=== PATIENT | male | born 1925 | race Caucasian/White ===

== ENCOUNTER 2017-09-29 09:29 | Outpatient (CLI) | payer MEDICARE, OTHER ==
--- NOTE | 2017-09-29 10:17 | RAD ---
CHEST TWO VIEWS: History: Dyspnea. Comparison: 09-14-17 FINDINGS: Heart size is enlarged. Small effusions. Interstitial opacities are similar. No pneumothorax. No acut e osseous abnormality. IMPRESSION: 1. Cardiomegaly with moderate edema. Underlying developing pulmonary fibrosis is also of concern. 2. Old left sided rib fractures. POS: OFF
== END 2017-09-29 09:30 | disposition home or self-care (01) ==
LOC: RAD 09:29
PROVIDERS: ATTEND Internal Medicine Critical Care Medicine
DX: R06.00 Dyspnea, unspecified (principal); Z51.81 Encounter for therapeutic drug level monitoring; J81.1 Chronic pulmonary edema; I51.7 Cardiomegaly; J84.10 Pulmonary fibrosis, unspecified; Z79.01 Long term (current) use of anticoagulants; Z87.81 Personal history of (healed) traumatic fracture
CPT/HCPCS: 71020

== ENCOUNTER 2017-10-02 23:52 | Inpatient (IN) | payer MEDICARE, OTHER ==
[2017-10-03] MEDS ORDERED: methylPREDNISolone Sod Succ/PF 125 MG/2 ML VIAL ONE (00:24)
[2017-10-03] MEDS ORDERED: Magnesium Sulfate 2 GM/100 ML BAG ONE (00:24)
[2017-10-03 00:33] LABS: #Basophils 0.1 thou/uL (0.0-0.2); #Eosinphils 0.2 thou/uL (0.0-0.7); #Lymphocytes 0.7 thou/uL (1.20-3.40); #Monocytes 0.7 thou/uL (0.11-0.59); #Neutrophils 4.5 thou/uL (1.40-6.50); %Basophils 0.8 % (0.0-1.0); %Eosinophils 3.8 % (0.0-10.0); %Lymphocytes 11.5 % (21.0-51.0); %Monocytes 11.9 % (0.0-10.0); Hematocrit 31.5 % (42.0-52.0); Mean Platelet Volume 8.8 fL (7.4-10.4); Red Blood Cell (RBC) Count 3.42 mill/uL (4.70-6.10); White Blood Cell (WBC) Count 6.2 thou/uL (4.8-10.8)
[2017-10-03 00:43] LABS: PTT 38.2 SEC (22.9-36.1); Prothrombin Time 20.1 SEC (12.0-14.7)
[2017-10-03 00:54] LABS: Digoxin 0.85 ng/mL (0.8-2.0)
[2017-10-03 00:54] LABS: ALT (SGPT) 16 U/L (8-55); AST (SGOT) 31 U/L (5-34); Alkaline Phosphatase 128 U/L (40-150); Anion Gap 12 mmol/L (10-20); BUN (Urea Nitrogen) 20 mg/dL (8.4-25.7); Bilirubin, Total 2.1 mg/dL (0.2-1.2); CK (CPK) 118 U/L (30-200); Calc. Creatinine Clearance 0 mL/min (70-130); Calcium 9.7 mg/dL (7.8-10.44); Carbon Dioxide 24 mmol/L (23-31); Chloride 106 mmol/L (98-107); Estimated GFR-MDRD 77; Globulin 2.6 g/dL (2.4-3.5); Protein, Total 6.4 g/dL (5.8-8.1)
[2017-10-03 01:24] LABS: Troponin I 0.022 ng/mL (< 0.028)
[2017-10-03] MEDS ORDERED: Albuterol Sulfate 2.5 mg/3 ml Neb ONE (02:31)
[2017-10-03] MEDS ORDERED: Albuterol Sulfate 2.5 mg/0.5 ml Neb ONE (02:31)
[2017-10-03 02:37] LABS: Sodium 137 mmol/L (135-148)
[2017-10-03 02:39] LABS: Modified Allen's Test POSITIVE
[2017-10-03 02:40] LABS: Mode NC
[2017-10-03 04:44] VITALS: BMI 25.0
[2017-10-03] MEDS ORDERED: methylPREDNISolone Sod Succ/PF 125 MG/2 ML VIAL IVP SCH ×3 (06:00→12:00)
[2017-10-03] MEDS ORDERED: Benzonatate 100 MG CAP PO PRN (06:12)
[2017-10-03] MEDS ORDERED: Albuterol Sulfate 1.25 MG/3 ML NEB NEB PRN (06:15)
[2017-10-03] MEDS ORDERED: Loperamide HCl 2 MG CAP PO PRN (06:59)
[2017-10-03] MEDS ORDERED: Artificial Tears 18 DROP/0.9 ML EA EYE PRN (06:59)
[2017-10-03] MEDS ORDERED: Sodium Chloride 0.65% Nasal 44 ML BOT EA NARE PRN (06:59)
[2017-10-03] MEDS ORDERED: Ondansetron HCl/PF 4 MG/2 ML Vial IVP PRN (06:59)
[2017-10-03] MEDS ORDERED: Mag-Al 1200 mg/1200 mg/30 ML UDCUP PO PRN (06:59)
[2017-10-03] MEDS ORDERED: Eucerin (Mineral Oil/Petrolatum,White) 30 gm Jar TOP PRN (06:59)
[2017-10-03] MEDS ORDERED: Milk Of Magnesia 30 ML UDCUP PO PRN (06:59)
[2017-10-03] MEDS ORDERED: Loratadine 10 MG TAB PO PRN (06:59)
[2017-10-03] MEDS ORDERED: Acetaminophen 325 MG TAB PO PRN (06:59)
[2017-10-03] MEDS ORDERED: Diabetic Tussin 200 MG/10 ML UDCUP PO PRN (06:59)
[2017-10-03] MEDS ORDERED: HYDROcodone/Acetaminophen 5/325 mg Tablet PO PRN (06:59)
[2017-10-03] MEDS ORDERED: Ondansetron ODT 4 MG TAB PO PRN (06:59)
[2017-10-03] MEDS ORDERED: Chloraseptic Spray 180 ml Bottle PO PRN (06:59)
[2017-10-03] MEDS ORDERED: Senokot 8.6 MG TAB PO PRN (06:59)
[2017-10-03] MEDS ORDERED: hydrALAZINE 20 MG/ML VIAL SLOW IVP PRN (06:59)
[2017-10-03 07:16] LABS: #Lymphocytes 0.3 thou/uL (1.20-3.40); #Neutrophils 4.1 thou/uL (1.40-6.50); %Eosinophils 0.3 % (0.0-10.0); %Lymphocytes 6.5 % (21.0-51.0); %Monocytes 0.6 % (0.0-10.0); Mean Platelet Volume 8.6 fL (7.4-10.4); Red Blood Cell (RBC) Count 3.37 mill/uL (4.70-6.10); White Blood Cell (WBC) Count 4.4 thou/uL (4.8-10.8)
[2017-10-03 07:23] LABS: Prothrombin Time 19.4 SEC (12.0-14.7)
[2017-10-03 07:34] LABS: Anion Gap 13 mmol/L (10-20); BUN (Urea Nitrogen) 19 mg/dL (8.4-25.7); Calc. Creatinine Clearance 60 mL/min (70-130); Calcium 9.4 mg/dL (7.8-10.44); Carbon Dioxide 22 mmol/L (23-31); Chloride 105 mmol/L (98-107); Estimated GFR-MDRD 77
[2017-10-03] MEDS: guaiFENesin ER 600 MG TAB PO SCH ×2 (08:12→21:49)
[2017-10-03] MEDS: Digoxin 0.125 MG TAB PO SCH (08:12)
[2017-10-03] MEDS: Famotidine 20 MG TAB PO SCH ×2 (08:13→21:50)
[2017-10-03] MEDS: Tamsulosin HCl 0.4 MG CAP PO SCH (08:13)
[2017-10-03] MEDS: Ferrous Sulfate 325 MG TAB PO SCH (08:13)
--- NOTE | 2017-10-03 08:32 | RAD ---
CHEST 1 VIEW: Date: 10/03/17 HISTORY: 89-year-old male with dyspnea. COMPARISON: 09/29/17. FINDINGS: Extensive bilateral interstitial, linear, and reticulonodular parenchymal changes throughout both jayden gs. There is evidence for some right pleural effusion. Appearance is stable from 09/29/17. Postop mid line sternotomy. Minimal cardiomegaly. IMPRESSION: Minimal cardiomegaly with bilateral interstitial, linear, reticulonodular parenchymal changes, and sm all right pleural effusion. Stable from 09/29/17. POS: ADEEL
--- NOTE | 2017-10-03 11:10 | CON ---
DATE OF CONSULTATION: 10/03/2017 CONSULTING PHYSICIAN: Chencho Marquez M.D. REASON FOR CONSULTATION: Shortness of breath. HISTORY OF PRESENT ILLNESS: Mr. Mehta is an 89-year-old male who sees Dr. Cuevas for chronic inters titial lung disease. He was hospitalized last night with increasing shortness of breath. He says he is still breathing poorly this morning. He has had no cough and no congestion. PAST MEDICAL HISTORY: 1. Chronic obstructive lung disease, which apparently is not idiopathic pulmonary fibrosis. 2. Chronic atrial fibrillation. 3. Thyroid cancer. 4. Hypertension. 5. Gastroesophageal reflux. 6. Osteoarthritis. 7. Hyperlipidemia. PAST SURGICAL HISTORY: 1. Cholecystectomy. 2. Knee surgery. 3. Bowel resection. ALLERGIES: None. FAMILY MEDICAL HISTORY: Unremarkable. SOCIAL HISTORY: Nonsmoker, does not consume alcohol. MEDICATIONS PRIOR TO ADMISSION: Flomax 0.4 mg daily, Proscar 5 mg nightly, iron sulfate 325 mg every other day, Lanoxin 0.125 mg every morning, Tessalon 200 mg t.i.d. p.r.n. cough, Lipitor 20 mg daily, aspirin 81 mg daily, warfarin 3 mg Tuesday, Tuesday, and Tuesday and 1.5 mg Tuesday, , Tuesday; potassium chloride 20 mEq daily, DuoNeb three-four times daily. IMMUNIZATION STATUS: Had a flu shot this year, had pneumococcal vaccine in 07/2015. REVIEW OF SYSTEMS: Denies fever, chills, nausea, vomiting, chest pain, hematemesis, melena, hematoch ezia, hematuria, or dysuria. PHYSICAL EXAMINATION: VITAL SIGNS: Temperature 97.6, pulse 92, respirations 20, O2 sat 96% on 1 liter, blood pressure 136/ 66. GENERAL: He is sitting up. He is in no distress. HEENT: Remarkable for profound deafness. He has pupils that react equally. Oropharynx has poor den tition. NECK: Without adenopathy or JVD. LUNGS: Clear to auscultation except for crackles in the bases best heard posteriorly. CARDIAC: S1, S2 regular, without murmur. ABDOMEN: Soft and nontender. EXTREMITIES: No clubbing, cyanosis, or edema. NEUROLOGIC: Nonfocal. LABORATORY DATA: Sodium 136, potassium 4.3, chloride 105, CO2 22, BUN 19, creatinine 0.9, glucose 12 4, pH was 7.43, pCO2 31, pO2 259 on 2 liters nasal cannula. White blood cell count 4.4, hematocrit 3 1, platelet count 176. Chest x-ray shows chronic interstitial changes bilaterally. ASSESSMENT: 1. Increasing shortness of breath which I think is most likely related to mild fluid overload. 2. Chronic interstitial lung disease, which appears to be stable. RECOMMENDATIONS: 1. I would recommend diuresing him as you are doing. 2. Short course of steroids and antibiotics as it would be difficult to tell if he has superimposed pneumonia. If he improves rapidly with diuresis, then I would entertain stopping the antibiotics eddi walton quickly. Thank you for the referral. I will be happy to follow with you.
--- NOTE | 2017-10-03 12:16 | HP ---
PRIMARY CARE PHYSICIAN: Sheila Palacios M.D. REASON FOR ADMISSION: Increasing shortness of breath. HISTORY OF PRESENT ILLNESS: An 89-year-old male who has a history of pulmonary fibrosis who was brou ght to emergency room last night with complaint of increasing shortness of breath. At this point, geni smalls's family member is not present with him and patient is not able to provide good history, so his tory is limited. Most of the history is obtained from ER chart. Family member reported to the ER ph ysician that patient was getting shortness of breath after walking short distance and patient is feel ing more shortness of breath for the last 2 days. He was having wheezing. Patient was also given br eathing treatment at home without any significant help. Patient was recently hospitalized on 09/24/2017 at [facility], but after discharge f rom that hospitalization, patient's condition gotten worse. Patient has underlying history of pulmon betty fibrosis and is following Dr. Cuevas. He had echocardiography last year in 2016, which showed atr ial fibrillation, moderate to severe MR, moderate AR and tricuspid regurgitation. Today, patient has elevated BNP. He does not have any lower extremity edema. When I saw this patient this morning, at that time, patient was wheezing. He is hard of hearing and not able to provide a good history, but he was comfortable with oxygen. REVIEW OF SYSTEMS: The following complete review of systems was negative, unless otherwise mentioned in the HPI or below: Constitutional: Weight loss or gain, ability to conduct usual activities. Skin: Rash, itching. Eyes: Double vision, pain. ENT/Mouth: Nose bleeding, neck stiffness, pain, tenderness. Cardiovascular: Palpitations, dyspnea on exertion, orthopnea. Respiratory: Shortness of breath, wheezing, cough, hemoptysis, fever or night sweats. Gastrointestinal: Poor appetite, abdominal pain, heartburn, nausea, vomiting, constipation, or diarr hea. Genitourinary: Urgency, frequency, dysuria, nocturia. Musculoskeletal: Pain, swelling. Neurologic/Psychiatric: Anxiety, depression. Allergy/Immunologic: Skin rash, bleeding tendency. Review of systems is limited and is not reliable because of patient's hard of hearing and cognitive s tatus. ALLERGIES: No known drug allergies. CURRENT HOME MEDICATIONS: Proscar 5 mg p.o. daily, Zocor 40 mg p.o. at bedtime, aspirin 81 mg p.o. d aily, potassium chloride 20 mEq p.o. daily, Coumadin 3 mg p.o. daily, Lasix 40 mg p.o. daily, ferrous sulfate 325 mg p.o. daily. PAST MEDICAL HISTORY: Hypertension, dyslipidemia, coronary artery disease, atrial fibrillation, pulm onary fibrosis, gastroesophageal reflux disease, history of thyroid cancer, osteoarthritis, history o f pneumothorax with history of multiple rib fractures, chronic normocytic anemia, benign enlargement of prostate, history of ischemic bowel disease, history of thyroid nodule . PAST SURGICAL HISTORY: CABG x3, cholecystectomy, knee surgery, bowel resection, chest tube placement , cataract surgery, EGD, laryngoscopy, right total knee replacement, exploratory laparotomy. PAST PSYCHIATRIC HISTORY: Reviewed and negative. SOCIAL HISTORY: The patient lives at home with family. No history of tobacco, alcohol or illicit dr ug abuse. He is a former smoker. He quit smoking 2 years ago. FAMILY HISTORY: No strong family history of premature coronary artery disease, stroke or cancer. EMERGENCY ROOM COURSE: Patient is given albuterol sulfate nebulization, magnesium sulfate 2 g, Solu- Medrol 125 mg, and DuoNeb therapy. PHYSICAL EXAMINATION: VITAL SIGNS: Today blood pressure 126/76, pulse 82, respiratory rate 20, temperature 98.1, saturatio n 95% on 2 liter oxygen, weight 78.02 kilograms. GENERAL: Patient is currently alert, awake, arousable, hard of hearing, no obvious acute distress. HEAD: Normocephalic, atraumatic. EYES: Pupils are round and reactive to light. Extraocular muscles intact. ENT: Oropharynx within normal limits. Moist mucous membranes. No oral lesions. No pharyngeal eryt fabian, no exudate. NECK: Supple, no JVD, no thyromegaly, no carotid bruits. LUNGS: Bilateral end expiratory wheezing heard. Air entry reduced. No rales. Wheezing present melita aterally and no accessory muscles of respiration use. CARDIAC: S1 and S2 irregularly irregular. Systolic murmur present parasternally. ABDOMEN: Soft, bowel sounds present, nontender, nondistended. No organomegaly, no mass, no suprapub ic tenderness. BACK: Examination unremarkable. No CVA tenderness. EXTREMITIES: Upper extremity passive movements of all joints are normal. Lower extremity, no edema. Good peripheral pulsation. SKIN: No skin rash. HEMATOLOGICAL SYSTEM: No lymphadenopathy. PSYCHIATRIC: Normal affect. IMAGING AND SIGNIFICANT LABORATORY DATA: 1. EKG based on my review, atrial fibrillation with controlled ventricular response, incomplete righ t bundle branch block pattern. 2. Chest x-ray based on my review, chronic changes, bilateral interstitial and reticulonodular rodriguez es, small right pleural effusion. 3. CBC: WBC 6.2, hemoglobin 10.1, platelets 193. INR 1.7. 4. ABG: pH 7.43, CO2 31.3, bicarbonate 20.2, saturation 99.6. 5. BMP: Sodium 137, potassium 4.5, chloride 106, carbon dioxide 24, BUN 20, creatinine 0.92, glucos e 92, calcium 9.7. 6. LFT: AST 31, ALT 16, alkaline phosphatase 128, albumin 3.8, CK 118, CK-MB 5.8, troponin I 0.022, BNP 530.2, digoxin level 0.85. ASSESSMENT AND PLAN/IMPRESSION: 1. Increasing dyspnea, most likely related with combined etiology of mild fluid overload versus flar e up of interstitial lung disease. We will consult Pulmonary for their opinion. We will continue wi th Lasix 20 mg IV b.i.d. We will also consider adding Solu-Medrol 40 mg IV q.6 hourly along with empi traci antibiotic therapy for presumed superinfection. We will also continue with DuoNeb therapy every 4 hourly and Dulera 2 puffs inhalation b.i.d. We will closely monitor clinical response. 2. Acute on chronic diastolic congestive heart failure. This patient had echocardiography in 2016, which showed moderate to severe aortic regurgitation, tricuspid regurgitation, and severe mitral regu rgitation. Patient also has elevated BNP and patient also has mild fluid overload status and that is why we are treating with Lasix. 3. Chronic atrial fibrillation, currently rate controlled. We will continue aspirin 81 mg p.o. gabby y along with digoxin 0.125 mg p.o. b.i.d. 4. Dyslipidemia. We will continue Lipitor 20 mg p.o. at bedtime. 5. Benign enlargement of prostate. We will continue Proscar 5 mg p.o. daily and Flomax 0.4 mg p.o. daily. 6. Chronic anticoagulation. We will continue with warfarin 3 mg p.o. daily and we will monitor PT/I NR on daily basis. 7. Deep venous thrombosis prophylaxis, sequential compression device boots only. 8. Gastrointestinal prophylaxis, Pepcid 20 mg p.o. b.i.d. 9. Code status: The patient is FULL CODE at this point. No family member present at bedside. 10. Chronic normocytic anemia. Continue iron sulfate as per home dosage. Disposition plan based on clinical course. Based on the level of severity, I am expecting patient wi ll stay in hospital more than 2 midnights. Plan of care discussed with the patient.
[2017-10-03] MEDS: Furosemide 20 MG/2 ML VIAL SLOW IVP SCH (14:32)
[2017-10-03] MEDS ORDERED: Warfarin Sodium 3 MG TAB PO SCH (17:00)
[2017-10-03] MEDS: Mometasone/Formoterol 120 PUFF INHALER INH SCH (18:30)
[2017-10-03] MEDS: Finasteride 5 MG TAB PO SCH (21:49)
[2017-10-03] MEDS: Atorvastatin Calcium 10 MG TAB PO SCH (21:50)
[2017-10-04 04:34] LABS: #Lymphocytes 0.4 thou/uL (1.20-3.40); #Monocytes 0.5 thou/uL (0.11-0.59); #Neutrophils 9.2 thou/uL (1.40-6.50); %Basophils 0.2 % (0.0-1.0); %Lymphocytes 4.1 % (21.0-51.0); %Monocytes 4.6 % (0.0-10.0); Hematocrit 28.8 % (42.0-52.0); Mean Platelet Volume 9.1 fL (7.4-10.4); Red Blood Cell (RBC) Count 3.13 mill/uL (4.70-6.10); White Blood Cell (WBC) Count 10.1 thou/uL (4.8-10.8)
[2017-10-04 04:36] LABS: Prothrombin Time 21.8 SEC (12.0-14.7)
[2017-10-04 04:46] LABS: Anion Gap 11 mmol/L (10-20); BUN (Urea Nitrogen) 33 mg/dL (8.4-25.7); Calc. Creatinine Clearance 49 mL/min (70-130); Calcium 9.5 mg/dL (7.8-10.44); Carbon Dioxide 24 mmol/L (23-31); Chloride 104 mmol/L (98-107); Estimated GFR-MDRD 60
[2017-10-04] MEDS: Furosemide 20 MG/2 ML VIAL SLOW IVP SCH (05:24)
[2017-10-04] MEDS: Mometasone/Formoterol 120 PUFF INHALER INH SCH ×2 (06:42→19:57)
[2017-10-04] MEDS: Tamsulosin HCl 0.4 MG CAP PO SCH (08:46)
[2017-10-04] MEDS: guaiFENesin ER 600 MG TAB PO SCH ×2 (08:46→20:03)
[2017-10-04] MEDS: Famotidine 20 MG TAB PO SCH ×2 (08:46→20:03)
[2017-10-04] MEDS: Digoxin 0.125 MG TAB PO SCH (08:54)
--- NOTE | 2017-10-04 09:55 | PRG ---
DATE OF SERVICE: 10/04/2017 The patient feels better today. He said he slept well last night. PHYSICAL EXAMINATION: VITAL SIGNS: Temperature 97.8, pulse 77, respirations 20, O2 sat 96%, blood pressure 94/57. HEENT: Unremarkable. NECK: No JVD. LUNGS: Fairly clear without wheeze, rhonchi. CARDIAC: S1 and S2 regular. ABDOMEN: Soft, nontender. EXTREMITIES: No edema. LABORATORY DATA: White blood cell count 10, hematocrit 28.8, platelet count 190. INR 1.8, sodium 13 4, potassium 4.8, chloride 104, CO2 24, BUN 33, creatinine 1.1, glucose 160. ASSESSMENT: 1. Diastolic cardiac dysfunction with congestive heart failure. 2. Chronic interstitial lung disease which appears to be stable. RECOMMENDATION: 1. He is getting somewhat dry, so I will have his diuretics cut back. 2. I would change his steroids over to oral therapy with a rapid taper. 3. Change antibiotics over to oral therapy tomorrow and do not extend beyond 5 days. 4. I think he could probably go home tomorrow.
--- NOTE | 2017-10-04 12:53 | PDOC.PN ---
- Subjective Encounter Start Date: 10/04/17 Encounter Start Time: 08:45 Patient seen and examined. No new complaints. No overnight events - Objective Resuscitation Status: Resuscitation Status FULL:Full Resuscitation MAR Reviewed: Yes Vital Signs & Weight: Vital Signs (12 hours) Temp Pulse Resp BP Pulse Ox 10/04/17 11:44 97.3 F L 93 22 H 91/52 L 97 10/04/17 11:10 80 18 10/04/17 08:54 77 10/04/17 08:00 97.8 F 77 20 94/57 L 96 10/04/17 06:44 94 L 10/04/17 06:42 77 16 94 L 10/04/17 05:46 97.4 F L 78 16 108/71 97 Weight Weight 174 lb I&O: 10/03/17 10/04/17 10/05/17 06:59 06:59 06:59 Intake Total 1160 440 Output Total 200 600 Balance 960 -160 Result Diagrams: 10/04/17 04:02 10/04/17 04:02 Phys Exam - Physical Examination Constitutional: NAD HEENT: PERRLA, moist MMs, sclera anicteric Neck: no JVD, supple Respiratory: no wheezing, no rales, no rhonchi Cardiovascular: RRR, no significant murmur, no rub Gastrointestinal: soft, non-tender, no distention, positive bowel sounds Musculoskeletal: no edema, pulses present Neurological: non-focal Lymphatic: no nodes Psychiatric: normal affect Skin: no rash, normal turgor Dx/Plan (1) Acute on chronic diastolic (congestive) heart failure Code(s): I50.33 - ACUTE ON CHRONIC DIASTOLIC (CONGESTIVE) HEART FAILURE Status : Acute (2) Acute respiratory failure with hypoxia Code(s): J96.01 - ACUTE RESPIRATORY FAILURE WITH HYPOXIA Status: Acute (3) COPD exacerbation Code(s): J44.1 - CHRONIC OBSTRUCTIVE PULMONARY DISEASE W (ACUTE) EXACERBATION Status: Acute (4) BPH (benign prostatic hyperplasia) Code(s): N40.0 - BENIGN PROSTATIC HYPERPLASIA WITHOUT LOWER URINRY TRACT SYMP Status: Chronic (5) Chronic anticoagulation Code(s): Z79.01 - CORRECTION (CURRENT) USE OF ANTICOAGULANTS Status: Chronic (6) ILD (interstitial lung disease) Code(s): J84.9 - INTERSTITIAL PULMONARY DISEASE, UNSPECIFIED Status: Chronic (7) Paroxysmal atrial fibrillation Code(s): I48.0 - PAROXYSMAL ATRIAL FIBRILLATION Status: Chronic (8) Severe mitral regurgitation by prior echocardiogram Code(s): I34.0 - NONRHEUMATIC MITRAL (VALVE) INSUFFICIENCY Status: Chronic - Plan cont current plan of care, plan discussed w/ family, continue antibiotics, respiratory therapy * reduce lasix * change to po steroid * change to po antibiotics * get echo today * medication reviewed as below * symptomatic treatment * discussed with son. Review of Systems - Review of Systems Other: not reliable due to dementia - Medications/Allergies Allergies/Adverse Reactions: Allergies Allergy/AdvReac Type Severity Reaction Status Date / Time No Known Drug Allergies Allergy Verified 10/03/17 05:14 Medications: Current Medications Acetaminophen (Tylenol) 650 mg PO Q4H PRN PRN Reason: Headache/Fever or Pain Hydrocodone Bitart/Acetaminophen ([place] 5/325) 1 tab PO Q4H PRN PRN Reason: Moderate Pain (4-6) Last Admin: 10/04/17 00:22 Dose: 1 tab Al Hydroxide/Mg Hydroxide (Maalox) 30 ml PO Q6H PRN PRN Reason: Heartburn or Indigestion Albuterol Sulfate (Albuterol Sulfate) 1.25 mg NEB Q2H PRN PRN Reason: Wheezing or Cough Albuterol/Ipratropium (Duoneb) 3 ml NEB [id number] [facility] Stop: 10/09/17 14:22 Last Admin: 10/04/17 11:10 Dose: 3 ml Artificial Tears (Tears Naturale) 0 drop EA EYE PRN PRN PRN Reason: Dry Eyes Aspirin (Aspirin Chewable) 81 mg PO DAILY [facility] Last Admin: 10/04/17 08:46 Dose: 81 mg Atorvastatin Calcium (Lipitor) 20 mg PO HS [facility] Last Admin: 10/03/17 21:50 Dose: 20 mg Benzonatate (Tessalon) 200 mg PO TIDPRN PRN PRN Reason: Cough Digoxin (Lanoxin) 0.125 mg PO QAM [facility] Last Admin: 10/04/17 08:54 Dose: 0.125 mg Famotidine (Pepcid) 20 mg PO BID [facility] Last Admin: 10/04/17 08:46 Dose: 20 mg Ferrous Sulfate (Feosol) 325 mg PO Q2DAYS [facility] Last Admin: 10/03/17 08:13 Dose: 325 mg Finasteride (Proscar) 5 mg PO HS [facility] Last Admin: 10/03/17 21:49 Dose: 5 mg Furosemide (Lasix) 20 mg PO DAILY [facility] Guaifenesin (Robitussin Sf) 200 mg PO Q4H PRN PRN Reason: Cough Guaifenesin (Mucinex) 600 mg PO Q12HR [facility] Last Admin: 10/04/17 08:46 Dose: 600 mg Hydralazine HCl (Apresoline) 10 mg SLOW IVP Q4H PRN PRN Reason: Systolic BP > 180 Levofloxacin (Levaquin) 500 mg PO 0600 [facility] Loperamide HCl (Imodium) 2 mg PO PRN PRN PRN Reason: Diarrhea/Loose Stools Loratadine (Claritin) 10 mg PO DAILYPRN PRN PRN Reason: Sinus Symptoms Magnesium Hydroxide (Milk Of Magnesium) 30 ml PO DAILYPRN PRN PRN Reason: Constipation Mineral Oil/White Petrolatum (Eucerin Cream) 0 gm TOP BIDPRN PRN PRN Reason: Dry Skin Mometasone Furoate/Formoterol Fumar (Dulera 200 Mcg/5 Mcg Inhaler) 2 puff INH BID-RT [facility] Last Admin: 10/04/17 06:42 Dose: 2 puff Ondansetron HCl (Zofran Odt) 4 mg PO Q6H PRN PRN Reason: Nausea/Vomiting Ondansetron HCl (Zofran) 4 mg IVP Q6H PRN PRN Reason: Nausea/Vomiting Phenol (Chloraseptic [place] 180 Ml Bot) 0 ml PO PRN PRN PRN Reason: Sore Throat Prednisone (Prednisone) 20 mg PO BID [facility] Senna (Senokot) 2 tab PO HSPRN PRN PRN Reason: Constipation Sodium Chloride (Flush - Normal Saline) 10 ml IVF Q12HR [facility] Last Admin: 10/04/17 08:46 Dose: 10 ml Sodium Chloride (Flush - Normal Saline) 10 ml IVF PRN PRN PRN Reason: Saline Flush Last Admin: 10/03/17 05:05 Dose: 10 ml Sodium Chloride (Lloyd Nasal [place] 0.65%) 0 ml EA NARE QIDPRN PRN PRN Reason: Nasal Congestion Tamsulosin HCl (Flomax) 0.4 mg PO DAILY [facility] Last Admin: 10/04/17 08:46 Dose: 0.4 mg Warfarin Sodium (Coumadin) 3 mg PO SuTuThSa@1700 FAMILIA Warfarin Sodium (Coumadin) 1.5 mg PO MoWeFr@1700 FAMILIA
[2017-10-04] MEDS ORDERED: Warfarin Sodium 3 MG TAB PO SCH (17:00)
[2017-10-04] MEDS: Atorvastatin Calcium 10 MG TAB PO SCH (20:03)
[2017-10-04] MEDS: predniSONE 20 MG TAB PO SCH (20:03)
[2017-10-04] MEDS: Finasteride 5 MG TAB PO SCH (21:00)
[2017-10-05 05:05] LABS: Prothrombin Time 22.1 SEC (12.0-14.7)
[2017-10-05] MEDS: Mometasone/Formoterol 120 PUFF INHALER INH SCH ×2 (07:01→18:58)
[2017-10-05] MEDS: Famotidine 20 MG TAB PO SCH ×2 (08:21→20:10)
[2017-10-05] MEDS: Digoxin 0.125 MG TAB PO SCH (08:21)
[2017-10-05] MEDS: Ferrous Sulfate 325 MG TAB PO SCH (08:21)
[2017-10-05] MEDS: guaiFENesin ER 600 MG TAB PO SCH ×2 (08:21→20:10)
[2017-10-05] MEDS: Tamsulosin HCl 0.4 MG CAP PO SCH (08:21)
[2017-10-05] MEDS: predniSONE 20 MG TAB PO SCH ×2 (08:21→20:11)
--- NOTE | 2017-10-05 08:32 | PRG ---
DATE OF SERVICE: 10/05/2017 SUBJECTIVE: The patient is feeling well and he says he is up to going home. PHYSICAL EXAMINATION: VITAL SIGNS: Temperature 97.7, pulse 89, blood pressure 116/76, O2 sat 95%. HEENT: Unremarkable. CHEST: Clear. CARDIAC: S1 and S2 regular. ABDOMEN: Soft. EXTREMITIES: No edema. ASSESSMENT: 1. Likely decompensated diastolic cardiac dysfunction. 2. Chronic interstitial lung disease. PLAN: The patient's son-in-law was at the bedside. He expressed severe frustration over the fact th at the patient will go home and likely start complaining of shortness of breath immediately and reque sted to come back to the hospital. I told the son-in-law that the patient may need penitentiary care or a rehab evaluation. I do not think that there is anything acute going on that would necessitate continue hospitalization. I have asked the caseworker protective services to assist.
[2017-10-05] MEDS: Furosemide 20 MG TAB PO SCH (08:42)
--- NOTE | 2017-10-05 12:29 | PDOC.PN ---
- Subjective Encounter Start Date: 10/05/17 Encounter Start Time: 09:30 Patient seen and examined. No new complaints. No overnight events - Objective Resuscitation Status: Resuscitation Status FULL:Full Resuscitation MAR Reviewed: Yes Vital Signs & Weight: Vital Signs (12 hours) Temp Pulse Resp BP Pulse Ox 10/05/17 10:47 90 16 10/05/17 08:21 89 10/05/17 08:00 97.7 F 89 18 10/05/17 07:57 97.7 F 89 22 H 116/76 95 10/05/17 07:01 75 16 10/05/17 03:22 95 10/05/17 01:52 90 18 95 Weight Weight 174 lb I&O: 10/04/17 10/05/17 10/06/17 06:59 06:59 06:59 Intake Total 1160 1225 Output Total 200 600 Balance 960 625 Result Diagrams: 10/04/17 04:02 10/04/17 04:02 Phys Exam - Physical Examination Constitutional: NAD HEENT: PERRLA, moist MMs, sclera anicteric Neck: no JVD, supple Respiratory: no wheezing, no rales, no rhonchi Cardiovascular: RRR, no rub SM+ Gastrointestinal: soft, non-tender, no distention, positive bowel sounds Musculoskeletal: no edema, pulses present Neurological: non-focal, normal sensation Psychiatric: normal affect Skin: no rash, normal turgor Dx/Plan (1) Acute on chronic diastolic (congestive) heart failure Code(s): I50.33 - ACUTE ON CHRONIC DIASTOLIC (CONGESTIVE) HEART FAILURE Status : Acute (2) Acute respiratory failure with hypoxia Code(s): J96.01 - ACUTE RESPIRATORY FAILURE WITH HYPOXIA Status: Acute (3) COPD exacerbation Code(s): J44.1 - CHRONIC OBSTRUCTIVE PULMONARY DISEASE W (ACUTE) EXACERBATION Status: Acute (4) BPH (benign prostatic hyperplasia) Code(s): N40.0 - BENIGN PROSTATIC HYPERPLASIA WITHOUT LOWER URINRY TRACT SYMP Status: Chronic (5) Chronic anticoagulation Code(s): Z79.01 - [facility] (CURRENT) USE OF ANTICOAGULANTS Status: Chronic (6) ILD (interstitial lung disease) Code(s): J84.9 - INTERSTITIAL PULMONARY DISEASE, UNSPECIFIED Status: Chronic (7) Paroxysmal atrial fibrillation Code(s): I48.0 - PAROXYSMAL ATRIAL FIBRILLATION Status: Chronic (8) Severe mitral regurgitation by prior echocardiogram Code(s): I34.0 - NONRHEUMATIC MITRAL (VALVE) INSUFFICIENCY Status: Chronic - Plan cont current plan of care, plan discussed w/ family, continue antibiotics, PT/OT , clinical social work therapist * as per family pt will need snu placement for short term * medication reviewed as below * symptomatic treatment * echo pending result * stable for now. Review of Systems - Review of Systems Other: not reliable due to dementia - Medications/Allergies Allergies/Adverse Reactions: Allergies Allergy/AdvReac Type Severity Reaction Status Date / Time No Known Drug Allergies Allergy Verified 10/03/17 05:14 Medications: Current Medications Acetaminophen (Tylenol) 650 mg PO Q4H PRN PRN Reason: Headache/Fever or Pain Hydrocodone Bitart/Acetaminophen ([place] 5/325) 1 tab PO Q4H PRN PRN Reason: Moderate Pain (4-6) Last Admin: 10/04/17 00:22 Dose: 1 tab Al Hydroxide/Mg Hydroxide (Maalox) 30 ml PO Q6H PRN PRN Reason: Heartburn or Indigestion Albuterol Sulfate (Albuterol Sulfate) 1.25 mg NEB Q2H PRN PRN Reason: Wheezing or Cough Albuterol/Ipratropium (Duoneb) 3 ml NEB [id number] [facility] Stop: 10/09/17 14:22 Last Admin: 10/05/17 10:47 Dose: 3 ml Artificial Tears (Tears Naturale) 0 drop EA EYE PRN PRN PRN Reason: Dry Eyes Aspirin (Aspirin Chewable) 81 mg PO DAILY [facility] Last Admin: 10/05/17 08:21 Dose: 81 mg Atorvastatin Calcium (Lipitor) 20 mg PO HS [facility] Last Admin: 10/04/17 20:03 Dose: 20 mg Benzonatate (Tessalon) 200 mg PO TIDPRN PRN PRN Reason: Cough Digoxin (Lanoxin) 0.125 mg PO QAM [facility] Last Admin: 10/05/17 08:21 Dose: 0.125 mg Famotidine (Pepcid) 20 mg PO BID [facility] Last Admin: 10/05/17 08:21 Dose: 20 mg Ferrous Sulfate (Feosol) 325 mg PO Q2DAYS [facility] Last Admin: 10/05/17 08:21 Dose: 325 mg Finasteride (Proscar) 5 mg PO HS [facility] Last Admin: 10/04/17 21:00 Dose: Not Given Furosemide (Lasix) 20 mg PO DAILY [facility] Last Admin: 10/05/17 08:42 Dose: 20 mg Guaifenesin (Robitussin Sf) 200 mg PO Q4H PRN PRN Reason: Cough Guaifenesin (Mucinex) 600 mg PO Q12HR [facility] Last Admin: 10/05/17 08:21 Dose: 600 mg Hydralazine HCl (Apresoline) 10 mg SLOW IVP Q4H PRN PRN Reason: Systolic BP > 180 Levofloxacin (Levaquin) 500 mg PO 0600 [facility] Last Admin: 10/05/17 05:08 Dose: 500 mg Loperamide HCl (Imodium) 2 mg PO PRN PRN PRN Reason: Diarrhea/Loose Stools Loratadine (Claritin) 10 mg PO DAILYPRN PRN PRN Reason: Sinus Symptoms Magnesium Hydroxide (Milk Of Magnesium) 30 ml PO DAILYPRN PRN PRN Reason: Constipation Mineral Oil/White Petrolatum (Eucerin Cream) 0 gm TOP BIDPRN PRN PRN Reason: Dry Skin Mometasone Furoate/Formoterol Fumar (Dulera 200 Mcg/5 Mcg Inhaler) 2 puff INH BID-RT [facility] Last Admin: 10/05/17 07:01 Dose: 2 puff Ondansetron HCl (Zofran Odt) 4 mg PO Q6H PRN PRN Reason: Nausea/Vomiting Ondansetron HCl (Zofran) 4 mg IVP Q6H PRN PRN Reason: Nausea/Vomiting Phenol (Chloraseptic [place] 180 Ml Bot) 0 ml PO PRN PRN PRN Reason: Sore Throat Prednisone (Prednisone) 20 mg PO BID [facility] Last Admin: 10/05/17 08:21 Dose: 20 mg Senna (Senokot) 2 tab PO HSPRN PRN PRN Reason: Constipation Sodium Chloride (Flush - Normal Saline) 10 ml IVF Q12HR [facility] Last Admin: 10/05/17 08:42 Dose: 10 ml Sodium Chloride (Flush - Normal Saline) 10 ml IVF PRN PRN PRN Reason: Saline Flush Last Admin: 10/03/17 05:05 Dose: 10 ml Sodium Chloride ([place] Nasal [place] 0.65%) 0 ml EA NARE QIDPRN PRN PRN Reason: Nasal Congestion Tamsulosin HCl (Flomax) 0.4 mg PO DAILY [facility] Last Admin: 10/05/17 08:21 Dose: 0.4 mg Warfarin Sodium (Coumadin) 3 mg PO SuTuThSa@1700 [facility] Last Admin: 10/04/17 17:37 Dose: 3 mg Warfarin Sodium (Coumadin) 1.5 mg PO MoWeFr@1700 [facility]
[2017-10-05] MEDS ORDERED: Warfarin Sodium 1.5 MG TAB PO SCH (17:00)
[2017-10-05] MEDS: Finasteride 5 MG TAB PO SCH (20:10)
[2017-10-05] MEDS: Atorvastatin Calcium 10 MG TAB PO SCH (20:10)
[2017-10-05 20:28] VITALS: TEMP 97.9
[2017-10-06 04:58] LABS: Prothrombin Time 21.8 SEC (12.0-14.7)
[2017-10-06] MEDS: Mometasone/Formoterol 120 PUFF INHALER INH SCH (06:26)
[2017-10-06] MEDS: guaiFENesin ER 600 MG TAB PO SCH (08:07)
[2017-10-06] MEDS: Furosemide 20 MG TAB PO SCH (08:07)
[2017-10-06] MEDS: Tamsulosin HCl 0.4 MG CAP PO SCH (08:08)
[2017-10-06] MEDS: predniSONE 20 MG TAB PO SCH (08:08)
[2017-10-06] MEDS: Famotidine 20 MG TAB PO SCH (08:08)
[2017-10-06] MEDS: Digoxin 0.125 MG TAB PO SCH (08:08)
[2017-10-06 08:28] VITALS: BP 125/64
--- NOTE | 2017-10-06 11:23 | PDOC.PN ---
- Subjective Encounter Start Date: 10/06/17 Encounter Start Time: 08:25 Patient seen and examined. No new complaints. No overnight events - Objective Resuscitation Status: Resuscitation Status FULL:Full Resuscitation MAR Reviewed: Yes Vital Signs & Weight: Vital Signs (12 hours) Temp Pulse Resp BP Pulse Ox 10/06/17 10:31 83 16 99 10/06/17 08:08 105 H 10/06/17 08:00 97.9 F 105 H 16 125/64 93 L 10/06/17 07:15 97.9 F 79 16 10/06/17 06:26 98 10/06/17 06:23 79 16 98 10/06/17 03:36 96 10/06/17 03:17 16 Weight Weight 174 lb I&O: 10/05/17 10/06/17 10/07/17 06:59 06:59 06:59 Intake Total 1225 390 Output Total 600 600 Balance 625 -210 Result Diagrams: 10/04/17 04:02 10/04/17 04:02 Phys Exam - Physical Examination Constitutional: NAD HEENT: PERRLA, moist MMs, sclera anicteric Neck: no JVD, supple Respiratory: no wheezing, no rales, no rhonchi Cardiovascular: irregular SM+ Gastrointestinal: soft, non-tender, no distention Musculoskeletal: no edema, pulses present Neurological: non-focal, normal sensation Psychiatric: normal affect Skin: no rash, normal turgor Dx/Plan (1) Acute on chronic diastolic (congestive) heart failure Code(s): I50.33 - ACUTE ON CHRONIC DIASTOLIC (CONGESTIVE) HEART FAILURE Status : Acute (2) Acute respiratory failure with hypoxia Code(s): J96.01 - ACUTE RESPIRATORY FAILURE WITH HYPOXIA Status: Acute (3) COPD exacerbation Code(s): J44.1 - CHRONIC OBSTRUCTIVE PULMONARY DISEASE W (ACUTE) EXACERBATION Status: Acute (4) BPH (benign prostatic hyperplasia) Code(s): N40.0 - BENIGN PROSTATIC HYPERPLASIA WITHOUT LOWER URINRY TRACT SYMP Status: Chronic (5) Chronic anticoagulation Code(s): Z79.01 - [facility] (CURRENT) USE OF ANTICOAGULANTS Status: Chronic (6) ILD (interstitial lung disease) Code(s): J84.9 - INTERSTITIAL PULMONARY DISEASE, UNSPECIFIED Status: Chronic (7) Paroxysmal atrial fibrillation Code(s): I48.0 - PAROXYSMAL ATRIAL FIBRILLATION Status: Chronic (8) Severe mitral regurgitation by prior echocardiogram Code(s): I34.0 - NONRHEUMATIC MITRAL (VALVE) INSUFFICIENCY Status: Chronic - Plan cont current plan of care, continue antibiotics, PT/OT, social welfare clerk, respiratory therapy * medication reviewed as below * symptomatic treatment * stable for discharge to rehab * see discharge vince. Review of Systems - Review of Systems Other: not reliable due to dementia - Medications/Allergies Allergies/Adverse Reactions: Allergies Allergy/AdvReac Type Severity Reaction Status Date / Time No Known Drug Allergies Allergy Verified 10/03/17 05:14 Medications: Current Medications Acetaminophen (Tylenol) 650 mg PO Q4H PRN PRN Reason: Headache/Fever or Pain Hydrocodone Bitart/Acetaminophen ([place] 5/325) 1 tab PO Q4H PRN PRN Reason: Moderate Pain (4-6) Last Admin: 10/04/17 00:22 Dose: 1 tab Al Hydroxide/Mg Hydroxide (Maalox) 30 ml PO Q6H PRN PRN Reason: Heartburn or Indigestion Albuterol Sulfate (Albuterol Sulfate) 1.25 mg NEB Q2H PRN PRN Reason: Wheezing or Cough Albuterol/Ipratropium (Duoneb) 3 ml NEB [id number] [facility] Stop: 10/09/17 14:22 Last Admin: 10/06/17 10:31 Dose: 3 ml Artificial Tears (Tears Naturale) 0 drop EA EYE PRN PRN PRN Reason: Dry Eyes Aspirin (Aspirin Chewable) 81 mg PO DAILY [facility] Last Admin: 10/06/17 08:08 Dose: 81 mg Atorvastatin Calcium (Lipitor) 20 mg PO HS [facility] Last Admin: 10/05/17 20:10 Dose: 20 mg Benzonatate (Tessalon) 200 mg PO TIDPRN PRN PRN Reason: Cough Digoxin (Lanoxin) 0.125 mg PO QAM [facility] Last Admin: 10/06/17 08:08 Dose: 0.125 mg Famotidine (Pepcid) 20 mg PO BID [facility] Last Admin: 10/06/17 08:08 Dose: 20 mg Ferrous Sulfate (Feosol) 325 mg PO Q2DAYS [facility] Last Admin: 10/05/17 08:21 Dose: 325 mg Finasteride (Proscar) 5 mg PO HS [facility] Last Admin: 10/05/17 20:10 Dose: 5 mg Furosemide (Lasix) 20 mg PO DAILY [facility] Last Admin: 10/06/17 08:07 Dose: 20 mg Guaifenesin (Robitussin Sf) 200 mg PO Q4H PRN PRN Reason: Cough Guaifenesin (Mucinex) 600 mg PO Q12HR [facility] Last Admin: 10/06/17 08:07 Dose: 600 mg Hydralazine HCl (Apresoline) 10 mg SLOW IVP Q4H PRN PRN Reason: Systolic BP > 180 Levofloxacin (Levaquin) 500 mg PO 0600 [facility] Last Admin: 10/06/17 05:41 Dose: 500 mg Loperamide HCl (Imodium) 2 mg PO PRN PRN PRN Reason: Diarrhea/Loose Stools Loratadine (Claritin) 10 mg PO DAILYPRN PRN PRN Reason: Sinus Symptoms Magnesium Hydroxide (Milk Of Magnesium) 30 ml PO DAILYPRN PRN PRN Reason: Constipation Mineral Oil/White Petrolatum (Eucerin Cream) 0 gm TOP BIDPRN PRN PRN Reason: Dry Skin Mometasone Furoate/Formoterol Fumar (Dulera 200 Mcg/5 Mcg Inhaler) 2 puff INH BID-RT [facility] Last Admin: 10/06/17 06:26 Dose: 2 puff Ondansetron HCl (Zofran Odt) 4 mg PO Q6H PRN PRN Reason: Nausea/Vomiting Ondansetron HCl (Zofran) 4 mg IVP Q6H PRN PRN Reason: Nausea/Vomiting Phenol (Chloraseptic [place] 180 Ml Bot) 0 ml PO PRN PRN PRN Reason: Sore Throat Prednisone (Prednisone) 20 mg PO BID [facility] Last Admin: 10/06/17 08:08 Dose: 20 mg Senna (Senokot) 2 tab PO HSPRN PRN PRN Reason: Constipation Sodium Chloride (Flush - Normal Saline) 10 ml IVF Q12HR [facility] Last Admin: 10/06/17 08:08 Dose: 10 ml Sodium Chloride (Flush - Normal Saline) 10 ml IVF PRN PRN PRN Reason: Saline Flush Last Admin: 10/03/17 05:05 Dose: 10 ml Sodium Chloride ([place] Nasal [place] 0.65%) 0 ml EA NARE QIDPRN PRN PRN Reason: Nasal Congestion Tamsulosin HCl (Flomax) 0.4 mg PO DAILY [facility] Last Admin: 10/06/17 08:08 Dose: 0.4 mg Warfarin Sodium (Coumadin) 3 mg PO SuTuThSa@1700 [facility] Last Admin: 10/04/17 17:37 Dose: 3 mg Warfarin Sodium (Coumadin) 1.5 mg PO MoWeFr@1700 [facility] Last Admin: 10/05/17 18:06 Dose: 1.5 mg
--- NOTE | 2017-10-06 13:29 | DIS ---
DATE OF ADMISSION: 10/03/2017 DATE OF DISCHARGE: 10/06/2017 PRIMARY CARE PHYSICIAN: Dr. Sheila Palacios M.D. DISCHARGE DISPOSITION: Rehabilitation. PRIMARY DISCHARGE DIAGNOSES: 1. Acute on chronic diastolic congestive heart failure, improved. 2. Acute respiratory failure with hypoxia. 3. Interstitial lung disease exacerbation. SECONDARY DISCHARGE DIAGNOSES: Severe mitral regurgitation, paroxysmal atrial fibrillation, and inte rstitial lung disease, chronic anticoagulation, benign enlargement of prostate, chronic diastolic hea rt failure. PRIMARY PROCEDURE/OPERATION: None. RADIOLOGICAL INVESTIGATION: Chest x-ray on admission showed minimal cardiomegaly, bilateral intersti tial parenchymal changes. Echocardiography showed EF 55-60%, atrial fibrillation, severe valve femi l annular calcification, mitral regurgitation, moderate aortic stenosis, moderate tricuspid regurgita tion. SIGNIFICANT LABS: WBC 10.1, hemoglobin 9.2, platelets 190. INR 1.8. Sodium 134, potassium 4.8, chl oride 104, BUN 33, creatinine 1.15, calcium 9.5. LFT normal. BNP 530. Cardiac enzymes negative. D igoxin 0.85. DISCHARGE MEDICATIONS: Aspirin 81 mg p.o. daily, digoxin 0.125 mg p.o. daily, ferrous sulfate 325 mg p.o. every other day, Proscar 5 mg p.o. at bedtime, Lasix 30 mg p.o. daily, Mucinex 600 mg twice ananda ly for 5 days, DuoNeb q.6 hourly, Levaquin 500 mg p.o. daily, Dulera 2 puffs inhalation b.i.d., potas sium chloride 20 mEq p.o. daily, prednisone 20 mg p.o. b.i.d. for 5 days, then 20 mg daily for days, then 10 mg p.o. daily for 5 days, Zocor 40 mg p.o. at bedtime, Flomax 0.4 mg p.o. daily, warfarin as per home dosage. CONTRAINDICATIONS: None. CODE STATUS: FULL CODE. INPATIENT CONSULTANTS: Dr. Christensen was following while in hospital. TEST RESULTS PENDING ON DISCHARGE: None. ALLERGIES: No known drug allergy. DISCHARGE PLAN: Post hospital, the patient is planned for discharge to Rehab. Subsequently the vicente ent will follow up with primary care physician, Dr. Palacios on 10/12/2017 at 2:30 p.m. The patien t will follow up with Dr. Christensen as instructed. HOSPITAL COURSE: An 89-year-old male who has above-mentioned medical problem, who was admitted by me . Please see my HPI for further details. This patient was brought to the emergency room with increa sing respiratory distress. He was doing little exertion and he was getting out of breath and wheezin g, and that is why he was brought to the emergency room. The patient normally lives at home with the family, but whenever he tried to do little exertion in his yard, he gets out of breath and he starts wheezing. This time he had similar thing when he was working outside and then he got out of breath. He was not able to manage at home and that is why he was brought to the ER. The patient was initial ly hypoxic. He was in respiratory distress. In the emergency room treatment did not improve his con dition and that is why he required admission. While in hospital, we treated for COPD exacerbation or interstitial lung disease exacerbation with em piric antibiotic therapy, respiratory therapy. The patient also had elevated BNP and we suspected di astolic heart failure exacerbation and that is why we also gave him Lasix. We consulted Dr. Christensen and he also agreed with our management plan. We rapidly reduced the Lasix t o p.o. as well as we also changed IV steroid to p.o. prednisone tapering doses on discharge. We also prescribed empiric antibiotic therapy for a few more days. While in hospital, we continued his home medications. The patient's family member was concerned about going home and that is why we placed consult for case resource manager for rehab placement and the patient was approved for inpatient rehab placement. Today, the patient is seen and examined at bedside. Today he is on room air. He is stabilized with t he hospital treatment. He needs more PT, OT. Paper work for discharge done. Discharge medication r econciliation done. Total time spent on discharge day 31 minutes.
== END 2017-10-06 13:09 | DRG 291 ==
LOC: ERS 23:52 → T4-A 10-03 02:45
PROVIDERS: ADMIT Internal Medicine; ATTEND Internal Medicine
DX: I11.0 Hypertensive heart disease with heart failure (principal); J96.01 Acute respiratory failure with hypoxia; J44.1 Chronic obstructive pulmonary disease with (acute) exacerbation; I50.33 Acute on chronic diastolic (congestive) heart failure; J84.10 Pulmonary fibrosis, unspecified; I08.3 Combined rheumatic disorders of mitral, aortic and tricuspid valves; D64.9 Anemia, unspecified; Z79.01 Long term (current) use of anticoagulants; E78.5 Hyperlipidemia, unspecified; I25.10 Atherosclerotic heart disease of native coronary artery without angina pectoris; K21.9 Gastro-esophageal reflux disease without esophagitis; Z85.850 Personal history of malignant neoplasm of thyroid; M19.90 Unspecified osteoarthritis, unspecified site; N40.0 Benign prostatic hyperplasia without lower urinary tract symptoms; Z95.1 Presence of aortocoronary bypass graft; Z90.49 Acquired absence of other specified parts of digestive tract; Z96.651 Presence of right artificial knee joint; Z87.891 Personal history of nicotine dependence; I45.10 Unspecified right bundle-branch block; I48.0 Paroxysmal atrial fibrillation; Z79.82 Long term (current) use of aspirin
CPT/HCPCS: 36415; 71010; 80048; 80053; 80162; 82553; 82805; 83880; 84484; 85025; 85610; 85730; 93005; 93306; 94640; 94664; 94760; 96365; 96375; A4216; G8978-GP-CJ; G8979-GP-CJ; G8980-GP-CJ; J1940; J1956; J2920; J2930; J3475; J7506; J7611; J7620